=== PATIENT | male | born 1970 | race Caucasian/White ===

== ENCOUNTER 2021-02-22 14:05 | Emergency (ER) | payer OTHER ==
[2021-02-22 14:19] VITALS: BP 143/75; PULSE 85; TEMP 98; BMI 31.3
[2021-02-22] MEDS ORDERED: KETOROLAC TROMETHAMINE 30 MG/1 ML VIAL IM ONE (14:48)
[2021-02-22] MEDS ORDERED: LIDOCAINE 5% TOPICAL PATCH TP ONE (14:48)
[2021-02-22] MEDS ORDERED: CYCLOBENZAPRINE HCL 10 MG TABLET (FP) PO ONE (14:48)
[2021-02-22] MEDS ORDERED: CYCLOBENZAPRINE HCL 10 MG TABLET (FP) ONE (15:00)
[2021-02-22] MEDS ORDERED: KETOROLAC TROMETHAMINE 30 MG/1 ML VIAL ONE (15:00)
[2021-02-22] MEDS ORDERED: LIDOCAINE 5% TOPICAL PATCH ONE (15:00)
[2021-02-22] MEDS ORDERED: LIDOCAINE PATCH REMOVAL MC ONE (22:00)
== END 2021-02-22 15:32 | disposition home or self-care (01) ==
LOC: JER 14:05 → JERFT 14:05
PROC: 3E0233Z Introduction of Anti-inflammatory into Muscle, Percutaneous Approach (ICD-10-PCS; principal; 2021-02-22)
DX: M54.5 Low back pain (principal)
CPT/HCPCS: 99284-25